=== PATIENT | female | born 1995 | race Caucasian/White ===

== ENCOUNTER 2018-06-21 22:35 | Emergency (ER) | payer BC, MEDICAID ==
[2018-06-22 01:45] LABS: APPEARANCE,URINE CLEAR; BILIRUBIN,URINE NEGATIVE (NEGATIVE); COLOR,URINE YELLOW; GLUCOSE, URINE NEGATIVE (NEGATIVE); KETONES,URINE NEGATIVE (NEGATIVE); LEUKOCYTE ESTERASE,URINE TRACE (NEGATIVE); NITRITE,URINE NEGATIVE (NEGATIVE); PROTEIN,URINE NEGATIVE (NEGATIVE); UROBILINOGEN,URINE NEGATIVE mg/dL (<2.0)
[2018-06-22 01:58] LABS: BACTERIA (WET MOUNT) 4+ BACTERIA SEEN; EPITHELIALS (WET MOUNT) 3+ EPITHELIALS SEEN; T.VAGINALIS (WET MOUNT) NO TRICHOMONAS SEEN; WBCS (WET MOUNT) 2+ WBCS SEEN; YEAST (WET MOUNT) NO YEAST SEEN
[2018-06-22] MEDS ORDERED: LIDOCAINE 1% INJ-PF (10 MG/ML) 30 ML SDV INJ ONE (02:16)
[2018-06-22] MEDS ORDERED: FLUCONAZOLE 100 MG TABLET PO ONE (02:16)
[2018-06-22] MEDS ORDERED: DOXYCYCLINE HYCLATE 100 MG TABLET PO ONE (02:16)
[2018-06-22] MEDS ORDERED: CEFTRIAXONE INJ 250 MG VIAL IM ONE (02:16)
--- NOTE | 2018-06-22 02:19 | ER Document Report ---
HPI - HPI Patient complains to provider of: Vaginal spotting Time Seen by Provider: 06/22/18 00:52 Onset: Other - 4 days Onset/Duration: Persistent Quality of pain: Burning Pain Level: 3 Context: Patient complains of vaginal spotting for the past 4 days and complains of swelling to the vaginal area. Patient denies any fever nausea or vomiting. Patient states she had been treated for UTI 2 weeks ago with Macrobid. Patient denies any urinary symptoms at this time. Associated Symptoms: Other - Vaginal spotting Exacerbated by: Denies Relieved by: Denies Similar symptoms previously: No Recently seen / treated by doctor: Yes - ROS ROS below otherwise negative: Yes Systems Reviewed and Negative: Yes All other systems reviewed and negative - CONSTITUTIONAL Constitutional: DENIES: Fever - GASTROINTESTINAL Gastrointestinal: DENIES: Abdominal Pain, Nausea, Patient vomiting - URINARY Urinary: DENIES: Dysuria - REPRODUCTIVE Reproductive: REPORTS: Abnormal bleeding / discharge. DENIES: : - DERM Skin Color: Normal Skin Problems: None Past Medical History - General Information source: Patient - Social History Smoking Status: Never Smoker Frequency of alcohol use: None Drug Abuse: None Occupation: Customer service Family History: Reviewed & Not Pertinent Patient has suicidal ideation: No Patient has homicidal ideation: No - Medical History Medical History: Negative Renal/ Medical History: Denies: Hx Peritoneal Dialysis Surgical Hx: Negative Vertical Provider Document - CONSTITUTIONAL Agree With Documented VS: Yes Exam Limitations: No Limitations General Appearance: WD/WN, No Apparent Distress - INFECTION CONTROL TRAVEL OUTSIDE OF THE [place] IN LAST 30 DAYS: No - HEENT HEENT: Atraumatic, Normocephalic - NECK Neck: Normal Inspection - RESPIRATORY Respiratory: Breath Sounds Normal, No Respiratory Distress - CARDIOVASCULAR Cardiovascular: Regular Rate, Regular Rhythm - GI/ABDOMEN Gastrointestinal: Abdomen Soft, Abdomen Non-Tender, No Organomegaly - REPRODUCTIVE Female Genitalia: negative: CMT, Adnexal Pain-Right, Adnexal Pain-Left Notes: Patient with thick white, black chunky discharge in vagina. Patient with adherent white clumps concerning for candidiasis. Patient's labia minora swollen worrisome for candidiasis. No obvious retained vaginal foreign body noted - BACK Back: Normal Inspection - MUSCULOSKELETAL/EXTREMETIES Musculoskeletal/Extremeties: TAY ZAPATA - NEURO Level of Consciousness: Awake, Alert, Appropriate Motor/Sensory: No Motor Deficit - DERM Integumentary: Warm, Dry Course - Re-evaluation Re-evalutation: 06/22/18 Patient encouraged to use a douche at home to help wash additional debris from out of the vagina. Will cover with antifungal medicine for likely candidiasis. Patient also will be covered for pelvic inflammatory disease with doxycycline and Rocephin. An additional culture of the vagina was obtained and is pending at this time. Patient otherwise nontoxic in appearance and stable for discharge. - Vital Signs Vital signs: Temp Pulse Resp BP Pulse Ox 98.2 F 70 18 119/70 06/21/18 22:56 06/21/18 22:56 06/21/18 22:56 06/21/18 22:56 - Laboratory Laboratory results interpreted by me: 06/22/18 01:32 Urine Blood SMALL H Ur Leukocyte Esterase TRACE H Discharge - Discharge Clinical Impression: Vaginal discharge, Vaginal candidiasis, Bacterial vaginosis Condition: Stable Disposition: HOME, SELF-CARE Instructions: Doxycycline ([facility]), Pelvic Inflammatory Disease ([facility]), Rocephin ([facility]), Vaginosis, Bacterial ([facility]) Additional Instructions: Return immediately for any new or worsening symptoms Followup with your primary care provider, call tomorrow to make a followup appointment Follow-up with a business management specialist, call Saturday for an appointment Cultures are pending, will call if you need any different treatment Prescriptions: Clotrimazole [Clotrimazole-7] 1 applic VG QHS #1 cream.appl Doxycycline Hyclate 100 mg PO BID #28 capsule Metronidazole [Flagyl 500 mg Tablet] 500 mg PO BID #14 tablet Referrals: TED KENNY MD [Primary Care Provider] - 06/23/18
[2018-06-22 02:39] VITALS: BP 102/68
[2018-06-22 03:24] LABS: CHLAM PCR NOT DETECTED (NOT DETECT); GON PCR NOT DETECTED (NOT DETECT)
== END 2018-06-22 02:39 | disposition home or self-care (01) ==
LOC: ER 22:35
DX: N76.0 Acute vaginitis (principal); B96.89 Other specified bacterial agents as the cause of diseases classified elsewhere; B37.3 Candidiasis of vulva and vagina
CPT/HCPCS: 99283; 96372; 87070; 87205; 87210; 81025; 87077; 81001; 87491; 87591; J3490; J0696

== ENCOUNTER 2019-09-30 15:36 | Emergency (ER) | payer BC, MEDICAID ==
[2019-09-30] MEDS ORDERED: RINGERS SOLUTION,LACTATED 1,000 ML IV ONE (16:14)
[2019-09-30] MEDS ORDERED: METOCLOPRAMIDE HCL INJ/PF 10 MG/2 ML SDV IV ONE (16:14)
[2019-09-30] MEDS ORDERED: DIPHENHYDRAMINE HCL 50 MG/ML VIAL IV ONE (16:14)
--- NOTE | 2019-09-30 16:15 | ER Document Report ---
ED Medical Screen (RME) - General Stated Complaint: VOMITING/NAUSEA Time Seen by Provider: 09/30/19 16:11 Primary Care Provider: TED KENNY MD [Primary Care Provider] - Follow up as needed Information source: Patient Notes: Patient presents 8 weeks G2, P1 complaining of nausea and vomiting. Patient states she has been vomiting for the past 3 days and is unable to keep liquids down. Patient denies any abdominal pain, vaginal bleeding or vaginal discharge. Patient denies any urinary symptoms. I have greeted and performed a rapid initial assessment of this patient. A comprehensive ED assessment and evaluation of the patient, analysis of test results and completion of the medical decision making process will be conducted by additional ED providers. TRAVEL OUTSIDE OF THE [place] IN LAST 30 DAYS: No - Related Data Allergies/Adverse Reactions: No Known Allergies Allergy (Unverified 04/06/16 05:43) Past Medical History Renal/ Medical History: Denies: Hx Peritoneal Dialysis Physical Exam - Vital signs Vitals: Temp Pulse Resp BP Pulse Ox 98.6 F 104 H 18 132/81 H 95 09/30/19 15:39 09/30/19 15:39 09/30/19 15:39 09/30/19 15:39 09/30/19 15:39 - General General appearance: Appears well, Alert - Abdominal Inspection: Normal Tenderness: Nontender Course - Vital Signs Vital signs: Temp Pulse Resp BP Pulse Ox 98.6 F 104 H 18 132/81 H 95 09/30/19 15:39 09/30/19 15:39 09/30/19 15:39 09/30/19 15:39 09/30/19 15:39 Doctor's Discharge - Discharge Referrals: TED KENNY MD [Primary Care Provider] - Follow up as needed
[2019-09-30 16:40] LABS: ABSOLUTE MONOCYTES (AUTO) 0.7 10^3/uL (0.1-1.4); BASOPHILS % (AUTO) 0.2 % (0-2); EOSINOPHILS % (AUTO) 0.1 % (0-6); HEMATOCRIT 40.2 % (36.0-47.0); HEMOGLOBIN 14.1 g/dL (12.0-15.5); LYMPHOCYTES % (AUTO) 18.5 % (13-45); MEAN CORPUSCULAR HEMOGLOBIN 29.2 pg (27.0-33.4); MEAN CORPUSCULAR HGB CONC 34.9 g/dL (32.0-36.0); MEAN CORPUSCULAR VOLUME 83 fl (80-97); MONOCYTES % (AUTO) 6.3 % (3-13); PLATELET COUNT 310 10^3/uL (150-450); RED BLOOD COUNT 4.82 10^6/uL (3.72-5.28); RED CELL DISTRIBUTION WIDTH 15.2 % (11.5-14.0); SEGMENTED NEUTROPHILS % (AUTO) 74.9 % (42-78); TOTAL CELLS COUNTED % (AUTO) 100 %; WHITE BLOOD COUNT 10.6 10^3/uL (4.0-10.5)
--- NOTE | 2019-09-30 16:49 | ER Document Report ---
ED GI/ - General Chief Complaint: Vomiting Stated Complaint: VOMITING/NAUSEA Time Seen by Provider: 09/30/19 16:11 Primary Care Provider: TED KENNY MD [Primary Care Provider] - Follow up as needed Notes: 24-year-old woman 2 para 1 approximately 8-week intrauterine presents with nausea vomiting and inability to keep down fluids or food. She states that her symptoms of nausea and vomiting began early last week, she has had a difficult time use qjtf-pgr-[id number] multivitamins and a diphenhydramine- based otft-aio-ihoeykf medication however, has continued to have difficulties keeping down fluids. She denies fever, cramping abdominal pain, or vaginal bleeding. Presently being followed by the health department. TRAVEL OUTSIDE OF THE [place] IN LAST 30 DAYS: No - Related Data Allergies/Adverse Reactions: No Known Allergies Allergy (Unverified 04/06/16 05:43) Past Medical History - General Information source: Patient - Social History Smoking Status: Unknown if Ever Smoked Family History: Reviewed & Not Pertinent Renal/ Medical History: Denies: Hx Peritoneal Dialysis Review of Systems - Review of Systems Notes: Constitutional: Negative for fever. HENT: Negative for sore throat. Eyes: Negative for visual changes. Cardiovascular: Negative for chest pain. Respiratory: Negative for shortness of breath. Gastrointestinal: + Nausea and vomiting Genitourinary: Negative for dysuria. Musculoskeletal: Negative for back pain. Skin: Negative for rash. Neurological: Negative for headaches, weakness or numbness. 10 point ROS negative except as marked above and in HPI. Physical Exam - Vital signs Vitals: Temp Pulse Resp BP Pulse Ox 98.6 F 104 H 18 132/81 H 95 09/30/19 15:39 09/30/19 15:39 09/30/19 15:39 09/30/19 15:39 09/30/19 15:39 - Notes Notes: PHYSICAL EXAMINATION: Physical Exam: General: Well-nourished well-developed 24-year-old female in no acute distress HEENT: NC/AT, pupils equal round and reactive to light, MM moist,nares clear, oropharynx clear, airway patent Neck: supple, no adenopathy, no masses. Good range of motion Lungs: clear, no wheezing, no rales no rhonchi CVS: Regular rate and rhythm no murmur gallop or rub Abdomen: Soft, active, nontender, no masses, no hepatosplenomegaly Ext: No edema, clubbing or cyanosis. Neuro: Alert and responsive, moving all 4 extremities on command, cranial nerves intact, no focal findings Skin: Intact no open lesions, no rash PSYCH: Normal mood, normal affect. Course - Re-evaluation Re-evalutation: 09/30/19 16:48 Patient is given normal saline 1 L, 09/30/19 17:59 Patient was much better after receiving the IV fluids and medication. Fluid challenge went well. She is being discharged home instructions to use Diclegis nausea control. - Vital Signs Vital signs: Temp Pulse Resp BP Pulse Ox 98.3 F 67 16 103/69 100 09/30/19 19:01 09/30/19 19:01 09/30/19 19:01 09/30/19 19:01 09/30/19 19:01 - Laboratory Result Diagrams: 09/30/19 16:30 09/30/19 16:30 Laboratory results interpreted by me: 09/30/19 09/30/19 09/30/19 16:30 16:30 16:30 WBC 10.6 H RDW 15.2 H Sodium 135.0 L Total Protein 8.3 H Urine Protein 100 H Urine Ketones 80 H Urine Urobilinogen 4.0 H Discharge - Discharge Clinical Impression: Vomiting as reason for care in Condition: Good Disposition: HOME, SELF-CARE Instructions: Vomiting ([facility]) Additional Instructions: You were seen and treated in the emergency department for nausea and vomiting related to early . A prescription was given for dipclegis tablets, 1 tablet 3 times a day, do not crush, do not chew or split the tablets. Follow-up with your COMPUTER NETWORKING INSTRUCTOR appointment for further management if needed. If your symptoms are worsening or you have other concerns you may return to the emergency department. HOME CARE INSTRUCTIONS & INFORMATION: Thank you for choosing us for your medical needs. We hope you're satisfied with the care you received. After you leave, you must properly care for your problem and, at the same time, observe its progress. Any condition can change. Some illnesses can change rapidly over hours or days. If your condition worsens, return to the Emergency Department or see your physician promptly. ABOUT YOUR X-RAYS AND EKG'S: If you had an EKG or X-rays taken, they have been read by the Emergency Physician. The X-rays and EKG's will also be read by a Radiologist or Manufacturing Leader within 24 hours. If discrepancies are noted, you will be notified by telephone. Please be certain the ED has a correct telephone number & address where you can be reached. Also, realize that some fractures or abnormalities do not show up on initial X-rays. If your symptoms continue, see your physician. ABOUT YOUR LABORATORY TEST: If you had laboratory tests, the results have been reviewed by the Emergency Physician. Some test results (for example cultures) may not be available for several days. You will be contacted if any test result shows you need additional treatment. Please be certain the ED has a correct telephone number and address where you can be reached. ABOUT YOUR MEDICATIONS: You will receive instructions on how to take your medicine on the prescription label you receive. Additional information may be provided by the Pharmacy. If you have questions afterwards, call the ED for clarification or further instructions. Some prescribed medications may cause drowsiness. Do not perform tasks such as driving a car or operating machinery without consulting your Pharmacist. If you feel you need a refill of pain medication, your condition will need re-evaluation. Please do not call for a refill of any medication. ABOUT YOUR SIGNATURE: Signature of this document acknowledges to followin. Understanding that you received emergency treatment and that you may be released before al medical problems are known or treated. Please be certain the ED has a correct phone number & address where you can be reached. 2. Acknowledgement that you will arrange for follow-up care as recommended. 3. Authorization for the Emergency Physician to provide information to your follow-up Physician in order to maximize your care. AT ANY TIME, IF YOUR SYMPTOMS CHANGE SIGNIFICANTLY OR WORSEN OR YOU DEVELOP NEW SYMPTOMS, RETURN TO THE EMERGENCY DEPARTMENT IMMEDIATELY FOR RE-EVALUATION. OUR GOAL IS TO PROVIDE EXCELLENT MEDICAL CARE! WE HOPE THAT WE HAVE MET YOUR EXPECTATIONS DURING YOUR EMERGENCY DEPARTMENT VISIT AND THAT YOU FEEL YOU HAVE RECEIVED EXCELLENT CARE! Prescriptions: Doxylamine Succinate/Vit B6 [Akbar Johns 10-10 mg Tablet] 1 each PO TID PRN #15 tablet. PRN Reason: For Nausea/Vomiting Referrals: TED KENNY MD [Primary Care Provider] - Follow up as needed
[2019-09-30 16:53] LABS: APPEARANCE,URINE SLIGHTLY-CLOUDY; BILIRUBIN,URINE NEGATIVE (NEGATIVE); GLUCOSE, URINE NEGATIVE (NEGATIVE); KETONES,URINE 80 mg/dL (NEGATIVE); LEUKOCYTE ESTERASE,URINE NEGATIVE (NEGATIVE); NITRITE,URINE NEGATIVE (NEGATIVE); PROTEIN,URINE 100 mg/dL (NEGATIVE); URINE SPECIFIC GRAVITY 1.029
[2019-09-30 16:56] LABS: COLOR,URINE YELLOW
[2019-09-30 18:03] LABS: ALBUMIN 4.6 g/dL (3.5-5.0); ALKALINE PHOSPHATASE 59 U/L (38-126); ANION GAP 14 (5-19); ASPARTATE AMINO TRANSFERASE 33 U/L (14-36); BILIRUBIN,TOTAL 0.7 mg/dL (0.2-1.3); BLOOD UREA NITROGEN 11 mg/dL (7-20); CALCIUM 9.9 mg/dL (8.4-10.2); CARBON DIOXIDE 23 mmol/L (22-30); CHLORIDE 98 mmol/L (98-107); GLUCOSE 95 mg/dL (75-110); POTASSIUM 3.8 mmol/L (3.6-5.0); TOTAL PROTEIN 8.3 g/dL (6.3-8.2)
[2019-09-30 19:02] VITALS: BP 103/69
== END 2019-09-30 19:07 | disposition home or self-care (01) ==
LOC: ER 15:36
DX: O21.9 Vomiting of pregnancy, unspecified (principal); Z3A.08 8 weeks gestation of pregnancy
CPT/HCPCS: 99283; 96361; 96374; 96375; 36415; 83690; 85025; 80053; 81001; J1200; J2765; J7120

== ENCOUNTER 2019-10-13 16:07 | Emergency (ER) | payer MEDICAID ==
[2019-10-13] MEDS ORDERED: METOCLOPRAMIDE HCL INJ/PF 10 MG/2 ML SDV IV ONE (16:22)
[2019-10-13] MEDS ORDERED: NORMAL SALINE 1000 ML 1,000 ML IV ONE ×2 (16:22→17:52)
--- NOTE | 2019-10-13 16:25 | ER Document Report ---
ED Medical Screen (RME) - General Chief Complaint: Nausea/Vomiting Stated Complaint: NAUSEA/VOMITING Time Seen by Provider: 10/13/19 16:17 Primary Care Provider: TED KENNY MD [Primary Care Provider] - Follow up as needed TRAVEL OUTSIDE OF THE [place] IN LAST 30 DAYS: No - HPI Notes: 10/13/19 16:22 24-year-old female is 10 weeks 2 para 1 presents emergency room for persistent nausea and vomiting. States she was seen here 2 weeks ago for similar symptoms and the medication that was prescribed to her here ran out. Patient is managed by the health department currently, patient did not given the health department a call to let them know about her nausea and vomiting. Denies any fevers chills, abdominal pain, vaginal bleeding. No deia-flk-bycxlte med ications have been tried. I have greeted and performed a rapid initial assessment of this patient. A comprehensive ED assessment and evaluation of the patient, analysis of test results and completion of the medical decision making process will be conducted by additional ED providers. PHYSICAL EXAMINATION: GENERAL: Well-appearing, well-nourished and in no acute distress. CV: Sinus tachycardia LUNGS: No respiratory distress - Related Data Allergies/Adverse Reactions: No Known Allergies Allergy (Unverified 04/06/16 05:43) Past Medical History Renal/ Medical History: Denies: Hx Peritoneal Dialysis Physical Exam - Vital signs Vitals: Temp Pulse Resp BP Pulse Ox 98.7 F 118 H 18 117/85 96 10/13/19 16:11 10/13/19 16:11 10/13/19 16:11 10/13/19 16:11 10/13/19 16:11 Course - Vital Signs Vital signs: Temp Pulse Resp BP Pulse Ox 98.7 F 118 H 18 117/85 96 10/13/19 16:17 10/13/19 16:11 10/13/19 16:11 10/13/19 16:11 10/13/19 16:11 Doctor's Discharge - Discharge Referrals: TED KENNY MD [Primary Care Provider] - Follow up as needed
[2019-10-13 16:59] LABS: ABSOLUTE LYMPHOCYTES (AUTO) 1.8 10^3/uL (0.5-4.7); ABSOLUTE MONOCYTES (AUTO) 0.6 10^3/uL (0.1-1.4); BASOPHILS % (AUTO) 0.2 % (0-2); HEMOGLOBIN 13.9 g/dL (12.0-15.5); LYMPHOCYTES % (AUTO) 15.6 % (13-45); MEAN CORPUSCULAR HEMOGLOBIN 28.9 pg (27.0-33.4); MEAN CORPUSCULAR HGB CONC 34.7 g/dL (32.0-36.0); MEAN CORPUSCULAR VOLUME 83 fl (80-97); MONOCYTES % (AUTO) 5.4 % (3-13); PLATELET COUNT 364 10^3/uL (150-450); RED BLOOD COUNT 4.79 10^6/uL (3.72-5.28); RED CELL DISTRIBUTION WIDTH 14.9 % (11.5-14.0); SEGMENTED NEUTROPHILS % (AUTO) 78.8 % (42-78); TOTAL CELLS COUNTED % (AUTO) 100 %; WHITE BLOOD COUNT 11.4 10^3/uL (4.0-10.5)
[2019-10-13 17:13] LABS: ALBUMIN 4.7 g/dL (3.5-5.0); ALKALINE PHOSPHATASE 70 U/L (38-126); ANION GAP 17 (5-19); ASPARTATE AMINO TRANSFERASE 38 U/L (14-36); BILIRUBIN,DIRECT 0.4 mg/dL (0.0-0.4); BILIRUBIN,TOTAL 1.2 mg/dL (0.2-1.3); BLOOD UREA NITROGEN 12 mg/dL (7-20); CALCIUM 10.5 mg/dL (8.4-10.2); CARBON DIOXIDE 20 mmol/L (22-30); CHLORIDE 97 mmol/L (98-107); GLUCOSE 101 mg/dL (75-110); POTASSIUM 4.5 mmol/L (3.6-5.0); TOTAL PROTEIN 8.4 g/dL (6.3-8.2)
[2019-10-13 17:27] LABS: APPEARANCE,URINE SLIGHTLY-CLOUDY; BILIRUBIN,URINE NEGATIVE (NEGATIVE); COLOR,URINE AMBER; GLUCOSE, URINE NEGATIVE (NEGATIVE); KETONES,URINE 80 mg/dL (NEGATIVE); LEUKOCYTE ESTERASE,URINE TRACE (NEGATIVE); NITRITE,URINE NEGATIVE (NEGATIVE); PROTEIN,URINE 100 mg/dL (NEGATIVE); URINE SPECIFIC GRAVITY 1.027
[2019-10-13] MEDS ORDERED: PROMETHAZINE HCL INJ 25 MG/1 ML VIAL IV ONE (17:52)
--- NOTE | 2019-10-13 17:55 | ER Document Report ---
ED General - General Chief Complaint: Nausea/Vomiting Stated Complaint: NAUSEA/VOMITING Time Seen by Provider: 10/13/19 16:17 Primary Care Provider: TED KENNY MD [Primary Care Provider] - Follow up as needed TRAVEL OUTSIDE OF THE [place] IN LAST 30 DAYS: No - HPI Notes: Patient is a G2, P1 at approximately 10 weeks gestation who presents to the emergency department for evaluation of nausea and vomiting. She states she had a episodes of nonbloody emesis in the last 24 hours. She is urinating but is decreased. She had a headache but it is improved. She had been taking some medication that she had from a prior visit to the emergency department, but is not really trying any medicine to help her with her nausea. No fevers. No dysuria. No vaginal bleeding. - Related Data Allergies/Adverse Reactions: No Known Allergies Allergy (Unverified 04/06/16 05:43) Home Medications: None Past Medical History - General Information source: Patient - Social History Smoking Status: Never Smoker Family History: Reviewed & Not Pertinent Patient has homicidal ideation: No Renal/ Medical History: Denies: Hx Peritoneal Dialysis Surgical Hx: Negative Review of Systems - Review of Systems Gastrointestinal: See HPI -: Yes All other systems reviewed and negative Physical Exam - Vital signs Vitals: Temp Pulse Resp BP Pulse Ox 98.7 F 118 H 18 117/85 96 10/13/19 16:11 10/13/19 16:11 10/13/19 16:11 10/13/19 16:11 10/13/19 16:11 - Notes Notes: Vital signs reviewed, please refer to chart. Head is normocephalic, atraumatic. Pupils equal round, reactive to light. Neck is supple without meningismus. Heart is regular rate and rhythm. Lungs are clear to auscultation bilaterally. Abdomen is soft, nontender, normoactive bowel sounds throughout. Extremities without cyanosis, clubbing. Posterior calves are nontender. Peripheral pulses are equal. Skin is warm and dry. Patient is awake, alert, neurological exam is nonfocal. Course - Re-evaluation Re-evalutation: 10/13/19 17:55 Patient presents the emergency department for evaluation. She had laboratory investigations and medications as ordered through triage. She was feeling mildly improved after Reglan. I will can give her further fluids with Phenergan, as she is mildly hyponatremic. Patient is stable, no active vomiting. We will continue to monitor. 10/13/19 18:58 Patient feeling improved. She was able to tolerate a small amount of p.o. fluids. I will send her home with Phenergan suppositories. She is to follow-up with women's health tomorrow to discuss her continued nausea. She is to return to the ED with worsening. 10/13/19 18:59 Please note her beta is still pending. At this point I do not feel I see any indication to change her disposition based on these findings. Again she is had no bleeding and she has a known . 10/13/19 19:00 10/13/19 19:05 Please note recheck heart rate is 83 - Vital Signs Vital signs: Temp Pulse Resp BP Pulse Ox 98.4 F 83 16 106/68 99 10/13/19 19:02 10/13/19 19:02 10/13/19 19:02 10/13/19 19:02 10/13/19 19:02 - Laboratory Result Diagrams: 10/13/19 16:38 10/13/19 16:38 Laboratory results interpreted by me: 10/13/19 10/13/19 10/13/19 16:38 16:38 17:00 WBC 11.4 H RDW 14.9 H Absolute Neuts (auto) 9.0 H Seg Neutrophils % 78.8 H Sodium 133.6 L Chloride 97 L Carbon Dioxide 20 L Calcium 10.5 H AST 38 H ALT 39 H Total Protein 8.4 H Urine Protein 100 H Urine Ketones 80 H Urine Urobilinogen 4.0 H Ur Leukocyte Esterase TRACE H Discharge - Discharge Clinical Impression: Nausea and vomiting during , Dehydration Condition: Stable Disposition: HOME, SELF-CARE Instructions: Intravenous (IV) Fluids ([facility]), Vomiting ([facility]) Additional Instructions: Stay hydrated with small, frequent sips of fluids. Phenergan suppositories as needed for vomiting, please watch for drowsiness with this. Contact women's health tomorrow, notify them of your continued nausea and vomiting, and schedule follow-up. If you develop worsening or new concerning symptoms of any sort, please return immediately to the emergency department for evaluation. Referrals: TED KENNY MD [Primary Care Provider] - Follow up as needed
[2019-10-13] MEDS ORDERED: PROMETHAZINE HCL 25 MG SUPP (4 SUPP/ER DISP) PR ONE (18:59)
[2019-10-13 19:04] VITALS: BP 106/68
== END 2019-10-13 19:12 | disposition home or self-care (01) ==
LOC: ER 16:07
DX: O21.9 Vomiting of pregnancy, unspecified (principal); E86.0 Dehydration; Z3A.10 10 weeks gestation of pregnancy
CPT/HCPCS: 99284; 96361; 96374; 96375; 36415; 84702; 83690; 85025; 80053; 81001; J3490; J2765; J2550; J7030

== ENCOUNTER 2019-10-23 20:02 | Emergency (ER) | payer MEDICAID ==
[2019-10-23] MEDS ORDERED: NORMAL SALINE 1000 ML 1,000 ML IV ONE ×2 (20:53→21:59)
[2019-10-23 21:06] LABS: ABSOLUTE BASOPHILS # (AUTO) 0.1 10^3/uL (0.0-0.2); ABSOLUTE LYMPHOCYTES (AUTO) 3.1 10^3/uL (0.5-4.7); ABSOLUTE MONOCYTES (AUTO) 1.7 10^3/uL (0.1-1.4); ABSOLUTE NEUT (AUTO) 13.3 10^3/uL (1.7-8.2); BASOPHILS % (AUTO) 0.4 % (0-2); EOSINOPHILS % (AUTO) 0.1 % (0-6); HEMATOCRIT 43.3 % (36.0-47.0); HEMOGLOBIN 15.1 g/dL (12.0-15.5); MEAN CORPUSCULAR HEMOGLOBIN 28.9 pg (27.0-33.4); MEAN CORPUSCULAR HGB CONC 34.9 g/dL (32.0-36.0); MEAN CORPUSCULAR VOLUME 83 fl (80-97); MONOCYTES % (AUTO) 9.5 % (3-13); PLATELET COUNT 421 10^3/uL (150-450); RED BLOOD COUNT 5.24 10^6/uL (3.72-5.28); RED CELL DISTRIBUTION WIDTH 14.4 % (11.5-14.0); TOTAL CELLS COUNTED % (AUTO) 100 %; WHITE BLOOD COUNT 18.2 10^3/uL (4.0-10.5)
[2019-10-23 21:19] LABS: ALBUMIN 4.3 g/dL (3.5-5.0); ALKALINE PHOSPHATASE 144 U/L (38-126); ASPARTATE AMINO TRANSFERASE 103 U/L (14-36); BILIRUBIN,DIRECT 1.2 mg/dL (0.0-0.4); BILIRUBIN,TOTAL 2.3 mg/dL (0.2-1.3); BLOOD UREA NITROGEN 12 mg/dL (7-20); CALCIUM 10.8 mg/dL (8.4-10.2); GLUCOSE 100 mg/dL (75-110); POTASSIUM 3.2 mmol/L (3.6-5.0); TOTAL PROTEIN 8.2 g/dL (6.3-8.2)
[2019-10-23 21:24] LABS: ANION GAP 19 (5-19); CARBON DIOXIDE 18 mmol/L (22-30); CHLORIDE 91 mmol/L (98-107)
--- NOTE | 2019-10-23 21:56 | ER Document Report ---
ED GI/ - General Mode of Arrival: Ambulatory Information source: Patient TRAVEL OUTSIDE OF THE [place] IN LAST 30 DAYS: No - HPI Patient complains to provider of: Abdominal pain, , Vomiting Onset: Other Timing/Duration: Gradual Quality of pain: Cramping Severity at maximum: Moderate Severity in ED: Moderate Pain Level: 2 Location: [facility] Menstrual period history: Associated symptoms: Constipation, Nausea, Vomiting Exacerbated by: Movement Relieved by: Denies Similar symptoms previously: Yes Recently seen / treated by doctor: Yes - Related Data Home Medications: vitamins <MARCIA ALMAZAN - Last Filed: 10/24/19 01:01> <CASSIUS ARCHIBALD - Last Filed: 10/24/19 01:11> - General Chief Complaint: OB Problem (<20wks) Stated Complaint: VOMITTING Time Seen by Provider: 10/23/19 21:21 Notes: 24-year-old female presented to ED for complaint of continued nausea and vomiting. She states she has been throwing up since 16 October. She states she has been in the emergency room multiple times for nausea and vomiting during . She was here on September 29October for this and then today. She states she is vomited at least 7-8 times today. She states she is only urinating every other day and it is kind of foul-smelling. She states she does have some left lower quadrant abdominal pain. She states she is also constipated because she is not eating or drinking and has not had a bowel movement in a couple days. She states she has not been able to keep any food or fluids down for a week. She states that last time she was here someone gave her some suppositories to take and she took them but they did not really do a whole lot of good. She states she is 2 para 1. (MARCIA ALMAZAN) - Related Data Allergies/Adverse Reactions: No Known Allergies Allergy (Unverified 04/06/16 05:43) Past Medical History - General Information source: Patient - Social History Smoking Status: Never Smoker Chew tobacco use (# tins/day): No Frequency of alcohol use: None Drug Abuse: None Lives with: Parents Family History: Reviewed & Not Pertinent Patient has homicidal ideation: No - Past Medical History Cardiac Medical History: Reports: None Pulmonary Medical History: Reports: None EENT Medical History: Reports: None Neurological Medical History: Reports: None Endocrine Medical History: Reports: None Renal/ Medical History: Reports: None Malignancy Medical History: Reports: None GI Medical History: Reports: None Musculoskeletal Medical History: Reports None Skin Medical History: Reports None Psychiatric Medical History: Reports: None Traumatic Medical History: Reports: None Infectious Medical History: Reports: None Surgical Hx: Negative Past Surgical History: Reports: None - Immunizations Immunizations up to date: Yes <MARCIA ALMAZAN - Last Filed: 10/24/19 01:01> Review of Systems - Review of Systems Constitutional: No symptoms reported EENT: No symptoms reported Cardiovascular: No symptoms reported Respiratory: No symptoms reported Gastrointestinal: Abdominal pain, Nausea, Vomiting Female Genitourinary: . denies: Vaginal discharge, Vaginal bleeding Musculoskeletal: No symptoms reported Skin: No symptoms reported Hematologic/Lymphatic: No symptoms reported Neurological/Psychological: No symptoms reported -: Yes All other systems reviewed and negative <MARCIA ALMAZAN - Last Filed: 10/24/19 01:01> Physical Exam - Vital signs Interpretation: Normal - General General appearance: Appears well, Alert - HEENT Head: Normocephalic, Atraumatic Eyes: Normal Pupils: PERRL - Respiratory Respiratory status: No respiratory distress Chest status: Nontender Breath sounds: Normal Chest palpation: Normal - Cardiovascular Rhythm: Regular Heart sounds: Normal auscultation Murmur: No - Abdominal Inspection: Normal Distension: No distension Bowel sounds: Normal Tenderness: Tender Organomegaly: No organomegaly - Genitourinary External exam: Normal Speculum exam: Vaginal discharge - Right Vaginal bleeding: None Bimanuel exam: Adnexal tenderness - Left, Uterus enlarged. No: Cervical motion tender, Bladder/Urethral tender, Adnexal mass - Back Back: Normal, Nontender - Extremities General upper extremity: Normal inspection, Nontender, Normal color, Normal ROM, Normal temperature General lower extremity: Normal inspection, Nontender, Normal color, Normal ROM, Normal temperature, Normal weight bearing. No: Lian's sign - Neurological Neuro grossly intact: Yes Cognition: Normal Orientation: AAOx4 Carlee Coma Scale Eye Opening: Spontaneous Carlee Coma Scale Verbal: Oriented [place] Coma Scale Motor: Obeys Commands [place] Coma Scale Total: 15 Speech: Normal Motor strength normal: LUE, RUE, LLE, RLE Sensory: Normal - Psychological Associated symptoms: Normal affect, Normal mood - Skin Skin Temperature: Warm Skin Moisture: Dry Skin Color: Normal <MARCIA ALMAZAN - Last Filed: 10/24/19 01:01> - Vital signs Vitals: Temp Pulse Resp BP Pulse Ox 98.5 F 150 H 20 102/73 98 10/23/19 20:08 10/23/19 20:08 10/23/19 20:08 10/23/19 20:08 10/23/19 20:08 Course - Laboratory Result Diagrams: 10/23/19 20:50 10/23/19 20:50 - Diagnostic Test Radiology reviewed: Image reviewed, Reports reviewed <MARCIA ALMAZAN - Last Filed: 10/24/19 01:01> - Laboratory Result Diagrams: 10/23/19 20:50 10/23/19 20:50 <CASSIUS ARCHIBALD - Last Filed: 10/24/19 01:11> - Re-evaluation Re-evalutation: 10/24/19 00:[address] Beltre concerning this young lady her nausea vomiting and her belly pain. Ultrasound does show a live intrauterine vital signs are stable. Dr. Beltre had stated that if I could treat her nausea and vomiting and she could tolerate food and fluids she could go home. Patient did drink a juice and eat a pack of douglas crackers before discharge. She did get 2 L of fluids while in the emergency room. She was able to tolerate p.o. potassium and Pepcid. She was discharged home with prescription for Keflex and Reglan. Patient was given a lab slip to redraw her BMP on Saturday. She was instructed to follow-up with women's health care on Saturday by telephone to schedule follow-up appointment. Patient verbalized understanding that she needs to get her blood drawn on Saturday and she needs to schedule an appointment with women's health care on Saturday. She was also instructed that if the Reglan did not continue to treat her nausea she was to call women's health care or come back to the emergency room. Patient verbalized understanding of these instructions and she was discharged home. I did have Dr. Archibald go in and examined the patient and she agreed patient could be safely discharged. 10/24/19 00:58 Dr. Beltre did call to the ER and me know that the patient was hyperthyroid and this is a cause of hyperemesis in women. She states she would need to be admitted and followed up for her hypothyroidism and get this treatment stabilized before she can be discharged home. She states she will be admitting her to the second floor and she has written admission orders for her. ([facility],MARCIA) - Vital Signs Vital signs: Temp Pulse Resp BP Pulse Ox 97.9 F 97 16 107/73 100 10/24/19 00:55 10/24/19 00:55 10/24/19 00:55 10/24/19 00:55 10/24/19 00:55 - Laboratory Laboratory results interpreted by me: 10/23/19 10/23/19 10/23/19 20:50 20:50 20:50 WBC 18.2 H RDW 14.4 H Absolute Neuts (auto) 13.3 H Absolute Monos (auto) 1.7 H Sodium 128.3 L Potassium 3.2 L Chloride 91 L Carbon Dioxide 18 L Calcium 10.8 H Total Bilirubin 2.3 H Direct Bilirubin 1.2 H AST 103 H ALT 188 H Alkaline Phosphatase 144 H TSH < 0.01 L Beta HCG, Quant 739988.00 H Urine Protein Urine Ketones Urine Blood Urine Bilirubin Urine Urobilinogen Ur Leukocyte Esterase 10/23/19 21:55 WBC RDW Absolute Neuts (auto) Absolute Monos (auto) Sodium Potassium Chloride Carbon Dioxide Calcium Total Bilirubin Direct Bilirubin AST ALT Alkaline Phosphatase TSH Beta HCG, Quant Urine Protein 30 H Urine Ketones 80 H Urine Blood SMALL H Urine Bilirubin SMALL H Urine Urobilinogen 4.0 H Ur Leukocyte Esterase TRACE H Discharge - Discharge Admitting Provider: [facility] Unit Admitted: Post <MARCIA ALMAZAN - Last Filed: 10/24/19 01:01> <CASSIUS ARCHIBALD - Last Filed: 10/24/19 01:11> - Discharge Clinical Impression: Hyperemesis gravidarum, Hypokalemia UTI (urinary tract infection) Qualifiers: Urinary tract infection type: acute cystitis Hematuria presence: without hematuria Qualified Code(s): N30.00 - Acute cystitis without hematuria Condition: Stable Disposition: AGAINST MEDICAL ADVICE
[2019-10-23] MEDS ORDERED: DIPHENHYDRAMINE HCL 50 MG/ML VIAL IV ONE (22:04)
[2019-10-23] MEDS ORDERED: METOCLOPRAMIDE HCL INJ/PF 10 MG/2 ML SDV IV ONE (22:04)
[2019-10-23 22:17] LABS: APPEARANCE,URINE SLIGHTLY-CLOUDY; BILIRUBIN,URINE SMALL (NEGATIVE); GLUCOSE, URINE NEGATIVE (NEGATIVE); KETONES,URINE 80 mg/dL (NEGATIVE); LEUKOCYTE ESTERASE,URINE TRACE (NEGATIVE); NITRITE,URINE NEGATIVE (NEGATIVE); PROTEIN,URINE 30 mg/dL (NEGATIVE); URINE SPECIFIC GRAVITY 1.019
[2019-10-23 22:19] LABS: COLOR,URINE YELLOW
[2019-10-23] MEDS ORDERED: POTASSIUM CHLORIDE 10 MEQ TABLET.ER PO ONE ×2 (22:20→22:30)
--- NOTE | 2019-10-23 22:35 | PDOC H&P ---
History of Present Illness Admission Date/PCP: TED KENNY MD Patient complains of: n/v History of Present Illness: TIMOTHY CASTILLO is a 24 year old female who is reportedly 11wks and is now on her 3rd visit to the ER. However, no documented on US to r/o other causes of n/v of like Molar - ER provider asked to get US done on the way upstairs to be admitted. She delivered in 03/2016 precipitously after noted to be 7cm in office. She has not been seen yet with this for care. Eval labs ordered. ER provider will begin to correct her K. Mag added to order as well as TSH and HB A1c. Urine culture ordered and GC/CT and wet prep ordered. During evaluation for admission undetectable TSH and US noted 11+4ega IUP. Pt now stating she is leaving AMA since she has an scheduled for the am. Past Medical History LMP: 08/02/19 Gynecological Infection: No Baby 1 Year: 2,016 Weight: 3.544 kg Delivery: Spontaneous Vaginal Delivery Social History Information Source: Patient Lives with: Family Smoking Status: Never Smoker Electronic Cigarette use?: No Family History Family History: Reviewed & Not Pertinent Parental Family History Reviewed: No Children Family History Reviewed: NA Sibling(s) Family History Reviewed.: NA Medication/Allergy Home Medications: Hydroxyzine Pamoate [Vistaril 50 mg Capsule] 1 cap PO ONCE PRN 04/06/16 Ondansetron [Zofran Odt 4 mg Tablet] 1 tab PO ONCE PRN 04/06/16 Vit/Iron Fum/Folic AC [ Tablet] 1 tab PO DAILY 04/06/16 Clotrimazole [Clotrimazole-7] 1 applic VG QHS #1 cream.appl 06/22/18 Doxycycline Hyclate 100 mg PO BID #28 capsule 06/22/18 Metronidazole [Flagyl 500 mg Tablet] 500 mg PO BID #14 tablet 06/22/18 Doxylamine Succinate/Vit B6 [Akbar Johns 10-10 mg Tablet] 1 each PO TID PRN #15 tablet. 09/30/19 Metoclopramide HCl [Reglan 10 mg Tablet] 10 mg PO Q6HP PRN #30 tablet 10/24/19 Allergies/Adverse Reactions: No Known Allergies Allergy (Unverified 04/06/16 05:43) Physical Exam - Physical Exam Vital Signs: Temp Pulse Resp BP Pulse Ox 97.6 F 150 H 13 115/82 99 10/23/19 21:02 10/23/19 20:08 10/23/19 21:00 10/23/19 21:00 10/23/19 21:00 Intake & Output 10/22/19 10/23/19 10/24/19 06:59 06:59 06:59 Intake Total 1000 Balance 1000 Weight 45.2 kg General appearance: PRESENT: other - pt left before exam could be performed. Result Laboratory Results: 10/23/19 20:50 10/23/19 20:50 10/23/19 10/23/19 10/23/19 20:50 20:50 21:55 WBC 18.2 H RBC 5.24 Hgb 15.1 Hct 43.3 MCV 83 MCH 28.9 MCHC 34.9 RDW 14.4 H Plt Count 421 Seg Neutrophils % 73.0 Sodium 128.3 L Potassium 3.2 L Chloride 91 L Carbon Dioxide 18 L Anion Gap 19 BUN 12 Creatinine 0.56 Est GFR ( Amer) > 60 Glucose 100 Calcium 10.8 H Total Bilirubin 2.3 H AST 103 H Alkaline Phosphatase 144 H Total Protein 8.2 Albumin 4.3 Lipase 151.7 Urine Color YELLOW Urine Appearance SLIGHTLY-CLOUDY Urine pH 6.0 Ur Specific [place] 1.019 Urine Protein 30 H Urine Glucose (UA) NEGATIVE Urine Ketones 80 H Urine Blood SMALL H Urine Nitrite NEGATIVE Ur Leukocyte Esterase TRACE H Urine WBC (Auto) 13 Urine RBC (Auto) 3 Assessment & Plan - Diagnosis (1) Abnormal thyroid blood test Is this a current diagnosis for this admission?: Yes Plan: Free T3 and Free T4 ordered due to concern for hyperthyroidism. Pt does not have a PCM and has not been seen for the outside of the ER. Dr. Archibald instructed patient to f/u with [facility] and a PCM. (2) Hyperemesis gravidarum Is this a current diagnosis for this admission?: Yes Plan: meds given and now tolerating po. Pt is leaving AMA since she has an in the morning scheduled. (3) Hypokalemia Is this a current diagnosis for this admission?: Yes Plan: po kdur given in er (4) UTI (urinary tract infection) Qualifiers: Urinary tract infection type: acute cystitis Hematuria presence: without hematuria Qualified Code(s): N30.00 - Acute cystitis without hematuria Is this a current diagnosis for this admission?: Yes Plan: keflex given in er - Time Medications reviewed and adjusted accordingly: Yes Anticipated discharge: Other - AMA - Inpatient Certification Based on my medical assessment, after consideration of the patient's comorbidities, presenting symptoms, or acuity I expect that the services needed warrant INPATIENT care.: Yes I certify that my determination is in accordance with my understanding of Medicare's requirements for reasonable and necessary INPATIENT services [42 CFR 412.3e].: Yes Medical Necessity: Need Close Monitoring Due to Risk of Patient Decompensation, Need For IV Fluids
[2019-10-23] MEDS ORDERED: FAMOTIDINE INJ/PF 20 MG/2 ML SDV IV ONE (23:00)
[2019-10-23 23:57] LABS: T.VAGINALIS (WET MOUNT) NO TRICHOMONAS SEEN; WBCS (WET MOUNT) 1+ WBCS SEEN; YEAST (WET MOUNT) NO YEAST SEEN
--- NOTE | 2019-10-24 00:17 | RADIOLOGY REPORT (SQ) ---
EXAM DESCRIPTION: US LESS THAN 14 WEEKS COMPLETED DATE/TME: 10/23/2019 00:00 CLINICAL HISTORY: 24 years, Female, r/o molar , dating, ovary eval COMPARISON: None. TECHNIQUE: Emergent first trimester ultrasound LIMITATIONS: None. FINDINGS: The uterus measures 10.3 x 7.3 x 5.0 cm. There is an intrauterine gestational sac with pole. heart tones obtained at 169 bpm. Current ultrasound age 11 weeks 4 days. Assessment of the amniotic fluid volume and placenta is not performed due to early gestational age. Maternal right ovary measures 2 x 2 by 2 cm, the left 3 x 2 x 2 cm. Probable corpus luteal cyst of the right ovary measuring 1.7 x 1.7 cm. Normal flow to each ovary. No adnexal cyst or mass. No free fluid. There is a subtle 1.3 x 0.8 cm hypoechoic area adjacent to the gestational sac which could reflect small subchorionic hemorrhage or implantation bleed. IMPRESSION: Single, live IUP as above. Nonemergent follow-up recommended. Questionable tiny subchorionic hemorrhage as above copyright 2011 [employer]- All Rights Reserved
[2019-10-24] MEDS ORDERED: CEPHALEXIN 500 MG CAPSULE PO ONE (00:20)
[2019-10-24 00:57] VITALS: BP 107/73
[2019-10-24 01:23] LABS: CHLAM PCR NOT DETECTED (NOT DETECT)
[2019-10-24 01:28] LABS: FREE T3 13.8 pg/mL (2.77-5.27); FREE T4 (FREE THYROXINE) 6.5 ng/dL (0.78-2.19)
--- NOTE | 2019-10-24 01:41 | ER Document Report ---
Doctor's Note Notes: 10/24/19 01:40 Patient seen in conjunction with the nurse practitioner. In short this is a female with nausea and vomiting. This is her third visit this month. She was found to be hyponatremic, hypokalemic, and then eventually found to be hyperthyroid. Melissa Zuñiga, nurse practitioner, had talked at length with Dr. Trupti Beltre about this patient. The decision was made to admit the patient. I was notified after orders were placed that the patient plans on terminating this , does not want to be admitted to the hospital, and insists on leaving AGAINST MEDICAL ADVICE. I did go speak to the patient. I talked to her about her dehydration, the risks of electrolyte abnormalities, as well as the risks of associated hyperthyroidism. I explained to her in no uncertain terms the importance of follow-up. I gave her a lab slip to have her BMP rechecked on Saturday. I spoke with Dr. Beltre, who states that her free T3 and T4 are pending, that these would be followed up in the office next week. I explained to the patient that if she changed her mind at any point regarding admission we certainly would admit her. She voiced understanding. She happily took a lab slip, signed out AGAINST MEDICAL ADVICE.
[2019-10-24] MEDS ORDERED: FAMOTIDINE INJ/PF 20 MG/2 ML SDV IV SCH (10:00)
[2019-10-24] MEDS ORDERED: NORMAL SALINE 1000 ML 1,000 ML with THIAMINE HCL 100 MG, MVI, ADULT NO.1 WITH VIT K 10 ... IV ONE ×4 (23:00)
--- NOTE | 2019-10-25 10:56 | EKG REPORT ---
SEVERITY:- OTHERWISE NORMAL ECG - SINUS TACHYCARDIA MINIMAL ST DEPRESSION, INFERIOR LEADS : Confirmed by: Wallace Frank 25-Oct-2019 10:55:03
== END 2019-10-24 01:20 | disposition left against medical advice (07) ==
LOC: ER 20:02 → UNDOADMOB 10-24 01:05 → EH 10-24 01:05 → ER 10-24 01:20
DX: O26.91 Pregnancy related conditions, unspecified, first trimester (principal); O21.1 Hyperemesis gravidarum with metabolic disturbance; O23.41 Unspecified infection of urinary tract in pregnancy, first trimester; O21.9 Vomiting of pregnancy, unspecified; Z3A.11 11 weeks gestation of pregnancy
CPT/HCPCS: 93005; 99284; 96361; 96374; 96375; 36415; 87086; 84439; 87210; 84702; 83690; 83735; 84443; 85025; 80053; 81001; 84481; 83036; 87491; 87591; 76801; 93976; 93010; J1200; J2765; J7030; S0028

== ENCOUNTER → 2019-10-26 | Outpatient (CLI) | payer MEDICAID ==
[2019-10-26 14:41] LABS: ANION GAP 7 (5-19); BLOOD UREA NITROGEN 6 mg/dL (7-20); CALCIUM 9.5 mg/dL (8.4-10.2); CARBON DIOXIDE 26 mmol/L (22-30); CHLORIDE 103 mmol/L (98-107); GLUCOSE 80 mg/dL (75-110); POTASSIUM 3.8 mmol/L (3.6-5.0)
== END ==
LOC: OD 13:39
PROVIDERS: ATTEND Nurse Practitioner Family
DX: E87.6 Hypokalemia (principal); E87.1 Hypo-osmolality and hyponatremia; R11.10 Vomiting, unspecified
CPT/HCPCS: 36415; 80048

== ENCOUNTER 2020-03-20 11:51 | Emergency (ER) | payer MEDICAID ==
--- NOTE | 2020-03-20 12:20 | ER Document Report ---
ED Medical Screen (RME) - General Chief Complaint: Vag Bleeding, +preg <12wks Stated Complaint: VAGINAL BLEEDING Time Seen by Provider: 03/20/20 12:16 Notes: HPI: 25-year-old female G3, approximately 7 weeks by dates presenting for vaginal bleeding over the last 3 days. Patient had intercourse 3 days ago noticed some light red bleeding afterwards which has progressively darkened. Thought she saw some tissue yesterday. Mild low back pain and pelvic pain. Describes it as cramping. PHYSICAL EXAMINATION: No tenderness on palpation of the lower pelvis. exam deferred in triage. Review of records reveals O positive blood type I have greeted and performed a rapid initial assessment of this patient. A comprehensive ED assessment and evaluation of the patient, analysis of test results and completion of medical decision making process will be conducted by an additional ED providers. TRAVEL OUTSIDE OF THE [place] IN LAST 30 DAYS: No - Related Data Allergies/Adverse Reactions: No Known Allergies Allergy (Verified 03/20/20 12:13) Past Medical History Renal/ Medical History: Denies: Hx Peritoneal Dialysis - Immunizations Immunizations up to date: Yes Physical Exam - Vital signs Vitals: Temp Pulse Resp BP Pulse Ox 97.9 F 79 20 103/63 99 03/20/20 11:55 03/20/20 11:55 03/20/20 11:55 03/20/20 11:55 03/20/20 11:55 Course - Vital Signs Vital signs: Temp Pulse Resp BP Pulse Ox 97.9 F 79 20 103/63 99 03/20/20 11:55 03/20/20 11:55 03/20/20 11:55 03/20/20 11:55 03/20/20 11:55
[2020-03-20 12:38] LABS: ABSOLUTE LYMPHOCYTES (AUTO) 2.7 10^3/uL (0.5-4.7); ABSOLUTE MONOCYTES (AUTO) 0.5 10^3/uL (0.1-1.4); ABSOLUTE NEUT (AUTO) 5.1 10^3/uL (1.7-8.2); BASOPHILS % (AUTO) 0.3 % (0-2); EOSINOPHILS % (AUTO) 0.6 % (0-6); HEMOGLOBIN 13.2 g/dL (12.0-15.5); LYMPHOCYTES % (AUTO) 31.8 % (13-45); MEAN CORPUSCULAR HEMOGLOBIN 28.6 pg (27.0-33.4); MEAN CORPUSCULAR HGB CONC 33.9 g/dL (32.0-36.0); MEAN CORPUSCULAR VOLUME 84 fl (80-97); MONOCYTES % (AUTO) 6.4 % (3-13); PLATELET COUNT 307 10^3/uL (150-450); RED BLOOD COUNT 4.63 10^6/uL (3.72-5.28); RED CELL DISTRIBUTION WIDTH 15.3 % (11.5-14.0); SEGMENTED NEUTROPHILS % (AUTO) 60.9 % (42-78); TOTAL CELLS COUNTED % (AUTO) 100 %; WHITE BLOOD COUNT 8.4 10^3/uL (4.0-10.5)
[2020-03-20 12:51] LABS: APPEARANCE,URINE SLIGHTLY-CLOUDY; BILIRUBIN,URINE NEGATIVE (NEGATIVE); COLOR,URINE YELLOW; GLUCOSE, URINE NEGATIVE (NEGATIVE); KETONES,URINE NEGATIVE (NEGATIVE); LEUKOCYTE ESTERASE,URINE NEGATIVE (NEGATIVE); NITRITE,URINE NEGATIVE (NEGATIVE); PROTEIN,URINE NEGATIVE (NEGATIVE); URINE SPECIFIC GRAVITY 1.016; UROBILINOGEN,URINE NEGATIVE mg/dL (<2.0)
[2020-03-20 12:58] LABS: ALBUMIN 4.4 g/dL (3.5-5.0); ALKALINE PHOSPHATASE 60 U/L (38-126); ANION GAP 9 (5-19); ASPARTATE AMINO TRANSFERASE 26 U/L (14-36); BILIRUBIN,DIRECT 0.1 mg/dL (0.0-0.4); BILIRUBIN,TOTAL 0.7 mg/dL (0.2-1.3); BLOOD UREA NITROGEN 6 mg/dL (7-20); CALCIUM 9.6 mg/dL (8.4-10.2); CARBON DIOXIDE 26 mmol/L (22-30); CHLORIDE 100 mmol/L (98-107); GLUCOSE 88 mg/dL (75-110); POTASSIUM 4.5 mmol/L (3.6-5.0); TOTAL PROTEIN 7.6 g/dL (6.3-8.2)
--- NOTE | 2020-03-20 13:06 | RADIOLOGY REPORT (SQ) ---
EXAM DESCRIPTION: U/S OB TRANSVAG W/DOPPLER IMAGES COMPLETED DATE/TIME: 03/20/2020 12:50 pm REASON FOR STUDY: vag bleed preg COMPARISON: None. TECHNIQUE: Transvaginal static and realtime grayscale images acquired of the pelvis. Additional gerson cted spectral and color Doppler images recorded. All images stored on PACs. bHCG: Not available. CLINICAL DATES: 7 weeks 6 days. LIMITATIONS: None. FINDINGS: FETUS: Single Living intrauterine . ULTRASOUND EGA: 6 weeks 6 days ULTRASOUND ELINA: 11/07/2020 EFW: Not applicable less than 20 weeks. CRL: 7 mm FHR: 118 beats per minute. SURVEY: No visualized anomalies. AMNIOTIC FLUID: Adequate amount. PLACENTA: Not yet developed due to early gestation. SUBCHORIONIC BLEED: No. SIZE OF BLEED: Not applicable. UTERUS: No masses. No anomalies. CERVICAL LENGTH: 3.4 cm. Closed. RIGHT ADNEXA: Normal ovary with normal vascular flow. No adnexal free fluid. No adnexal masses. LEFT ADNEXA: Normal ovary with normal vascular flow. No adnexal free fluid. No adnexal masses. FREE FLUID: None. OTHER: No other significant finding. IMPRESSION: LIVING INTRAUTERINE . EGA 6 weeks 6 days. Trimester of : First trimester - 0 to 13 weeks. TECHNICAL DOCUMENTATION: JOB ID: [id number] 2010 [employer]- All Rights Reserved rev-10/25 Reading location - IP/workstation name: [email or web address]
--- NOTE | 2020-03-20 13:45 | ER Document Report ---
ED General - General Chief Complaint: Vag Bleeding, +preg <12wks Stated Complaint: VAGINAL BLEEDING Time Seen by Provider: 03/20/20 12:16 TRAVEL OUTSIDE OF THE [place] IN LAST 30 DAYS: No - HPI Notes: 25-year-old female, G3, P1 elective Ab1, to the ER with complaints of vaginal spotting for the past 3 days. She states is not very heavy and it is very dark in color. She denies any pelvic pain. She states she is supposed to go to women[facility] for her care. She is taking a vitamin. Denies any nausea or vomiting. The bleeding started after she had sex with her partner. Denies any concern for STDs. Denies any urinary complaints. Last menstrual was on January 24. - Related Data Allergies/Adverse Reactions: No Known Allergies Allergy (Verified 03/20/20 12:13) Past Medical History - General Information source: Patient - Social History Smoking Status: Never Smoker Family History: Reviewed & Not Pertinent Renal/ Medical History: Denies: Hx Peritoneal Dialysis - Immunizations Immunizations up to date: Yes Review of Systems - Review of Systems Constitutional: denies: Chills, Fever EENT: No symptoms reported Cardiovascular: denies: Chest pain, Palpitations, Dizziness, Lightheaded Respiratory: denies: Cough, Short of breath Gastrointestinal: denies: Abdominal pain, Diarrhea, Nausea, Vomiting Genitourinary: denies: Burning, Dysuria, Frequency Female Genitourinary: Last menstrual period - Last menstrual. January 24, , Vaginal bleeding Musculoskeletal: No symptoms reported Skin: No symptoms reported Hematologic/Lymphatic: No symptoms reported Neurological/Psychological: No symptoms reported -: Yes All other systems reviewed and negative Physical Exam - Vital signs Vitals: Temp Pulse Resp BP Pulse Ox 97.9 F 79 20 103/63 99 03/20/20 11:55 03/20/20 11:55 03/20/20 11:55 03/20/20 11:55 03/20/20 11:55 Interpretation: Normal - General General appearance: Appears well, Alert In distress: None - HEENT Head: Normocephalic, Atraumatic Eyes: Normal Pupils: PERRL - Respiratory Respiratory status: No respiratory distress Chest status: Nontender Breath sounds: Normal. No: Rales, Rhonchi, Wheezing Chest palpation: Normal - Cardiovascular Rhythm: Regular Heart sounds: Normal auscultation Murmur: No - Abdominal Inspection: Normal Distension: No distension Bowel sounds: Normal Tenderness: Nontender. No: Tender, McBurney's point, Corcoran's sign, Guarding Organomegaly: No organomegaly - Back Back: Normal - Extremities General upper extremity: Normal inspection, Nontender, Normal color, Normal ROM, Normal temperature General lower extremity: Normal inspection, Nontender, Normal color, Normal ROM, Normal temperature, Normal weight bearing - Neurological Neuro grossly intact: Yes Cognition: Normal Orientation: AAOx4 Carlee Coma Scale Eye Opening: Spontaneous [place] Coma Scale Verbal: Oriented [place] Coma Scale Motor: Obeys Commands [place] Coma Scale Total: 15 Speech: Normal Cranial nerves: Normal Cerebellar coordination: Normal. 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 No: Pronator drift Sensory: Normal - Psychological Associated symptoms: Normal affect, Normal mood - Skin Skin Temperature: Warm Skin Moisture: Dry Skin Color: Normal Course - Re-evaluation Re-evalutation: 03/20/20 13:46 Impression: Threatened miscarriage. Noted ultrasound with IUP with heart rate of 118. Cervix is closed. Patient declines pelvic exam today. Otherwise her labs are reassuring. Rh-. We will have her follow-up with women's health in 48 hours for trending of her beta quant. Encouraged return for any worsening symptoms. - Vital Signs Vital signs: Temp Pulse Resp BP Pulse Ox 97.9 F 79 20 103/63 99 03/20/20 11:55 03/20/20 11:55 03/20/20 11:55 03/20/20 11:55 03/20/20 11:55 - Laboratory Result Diagrams: 03/20/20 12:26 03/20/20 12:26 Laboratory results interpreted by me: 03/20/20 03/20/20 03/20/20 12:26 12:26 12:26 RDW 15.3 H Sodium 134.5 L BUN 6 L Beta HCG, Quant 85530.00 H Urine Blood MODERATE H - Diagnostic Test Radiology reviewed: Image reviewed, Reports reviewed Discharge - Discharge Clinical Impression: Threatened miscarriage in early , Vaginal bleeding Condition: Stable Disposition: HOME, SELF-CARE Instructions: Threatened Miscarriage ([facility]) Additional Instructions: Even evaluated today for vaginal bleeding and early . You did have an intrauterine with a heart rate of 118. You do need to see your POWDERED SUGAR SUPERVISOR at women's health in 48 hours for repeat of your hormone. Your hormone was 64,778 today. Pelvic rest until cleared by your POWDERED SUGAR SUPERVISOR. No douching, sex, tampons. Return if you have worsening symptoms such as chest pain, shortness of breath, heavy vaginal bleeding, passing out. Continue your vitamin. Referrals: PIOTR RODRIGUEZ MD [ACTIVE STAFF] - 03/22/20 (for repeat hormone trending)
[2020-03-20 14:16] VITALS: BP 94/65
== END 2020-03-20 13:57 | disposition home or self-care (01) ==
LOC: ER 11:51
DX: O20.0 Threatened abortion (principal); Z79.899 Other long term (current) drug therapy; Z3A.01 Less than 8 weeks gestation of pregnancy
CPT/HCPCS: 36415; 76817; 80053; 81001; 84702; 85025; 86900; 86901; 93976; 99284